=== PATIENT | female | born 1945 | race Caucasian/White ===

== ENCOUNTER 2024-03-19 15:57 | Emergency (ER) | payer MEDICARE, MEDICAID ==
[~2024-03-19] VITALS: Ht 165.1 cm; Wt 87.0 kg
[2024-03-19 16:06] VITALS: TEMP 97.8; O2SAT 99
[2024-03-19] MEDS: ACETAMINOPHEN 500MG TABLET PO ONE (17:03)
[2024-03-19] MEDS ORDERED: TOPUD MT (18:28)
[2024-03-19] MEDS ORDERED: AZIT250T12 MT (18:29)
[2024-03-19 18:53] VITALS: BP 154/46; PULSE 60; RESP 16
== END 2024-03-19 19:24 | disposition home or self-care (01) ==
LOC: ER 15:57
DX: R21 Rash and other nonspecific skin eruption (principal); E11.9 Type 2 diabetes mellitus without complications; I10 Essential (primary) hypertension
CPT/HCPCS: 71045; 72170; 99284